=== PATIENT | female | born 1945 | race Caucasian/White ===

== ENCOUNTER → 2016-12-12 | Outpatient (CLI) | payer MEDICARE, BC ==
[~2016-12-12] MED LIST: CHANTIX0.5 MG PO; MYSOLINE250 MG PO; PLAVIX75 MG PO; PRAVACHOL40 MG PO; PRILOSEC40 MG PO
== END | disposition short-term general hospital (02) ==
LOC: CLPULM 05:16
DX: J44.9 Chronic obstructive pulmonary disease, unspecified (principal); F17.210 Nicotine dependence, cigarettes, uncomplicated; J84.10 Pulmonary fibrosis, unspecified; G47.33 Obstructive sleep apnea (adult) (pediatric); I73.9 Peripheral vascular disease, unspecified; M79.7 Fibromyalgia; M19.90 Unspecified osteoarthritis, unspecified site; K21.9 Gastro-esophageal reflux disease without esophagitis; F32.9 Major depressive disorder, single episode, unspecified; Z90.2 Acquired absence of lung [part of]

== ENCOUNTER 2016-12-26 12:47 | Day surgery (SDC) | payer MEDICARE, BC | END 2016-12-26 13:55 | disposition short-term general hospital (02) | LOC: SURGOP 12:47 | PROC: 0TJB8ZZ Inspection of Bladder, Via Natural or Artificial Opening Endoscopic (ICD-10-PCS; principal; 2016-12-26) | DX: Z85.51 Personal history of malignant neoplasm of bladder (principal); N32.89 Other specified disorders of bladder; N39.0 Urinary tract infection, site not specified ==

== ENCOUNTER → 2017-01-17 | Outpatient (CLI) | payer MEDICARE, BC | END | disposition short-term general hospital (02) | LOC: CLORTH 01-03 09:07 | DX: M75.111 Incomplete rotator cuff tear or rupture of right shoulder, not specified as traumatic (principal); M75.21 Bicipital tendinitis, right shoulder; M75.50 Bursitis of unspecified shoulder; M75.81 Other shoulder lesions, right shoulder ==

== ENCOUNTER → 2017-01-31 | Outpatient (CLI) | payer MEDICARE, BC | END | disposition short-term general hospital (02) | LOC: CLORTH 13:34 | DX: M75.111 Incomplete rotator cuff tear or rupture of right shoulder, not specified as traumatic (principal); M75.81 Other shoulder lesions, right shoulder; M24.111 Other articular cartilage disorders, right shoulder; M19.011 Primary osteoarthritis, right shoulder ==